=== PATIENT | female | born 1955 | race Caucasian/White ===

== ENCOUNTER 2021-04-11 16:26 | Emergency (ER) | payer OTHER ==
[~2021-04-11] VITALS: Ht 165.1 cm; Wt 81.7 kg
[~2021-04-11 16:26] MED LIST: ACIPHEX 20 MG T20 MG; CYMBALTA60 MG; FLEXERIL PO; PROGESTERONE
[2021-04-11] MEDS ORDERED: NORVASC 2.5 MG2.5 M1 PO (16:55)
[2021-04-11] MEDS ORDERED: LEVO-T25 MCG PO (16:56)
[2021-04-11] MEDS ORDERED: OMEPRAZOLE 20 M20 M1 PO (16:56)
[2021-04-11] MEDS ORDERED: LEXAPRO 10 MG T10 M1 PO (16:57)
[2021-04-11] MEDS ORDERED: XANAX2 MG PO (16:57)
[2021-04-11 17:23] LABS: INFLUENZA A ANTIGEN Negative (Negative); INFLUENZA B ANTIGEN Negative (Negative)
[2021-04-11] MEDS ORDERED: PREDNISONE 20 M20 MG PO (17:29)
[2021-04-11] MEDS ORDERED: AUGMENTIN 875-1 EACH PO (17:29)
[2021-04-11 17:35] VITALS: BP 129/79
== END 2021-04-11 17:35 | disposition home or self-care (01) ==
LOC: M.ERS 16:26
PROVIDERS: Nurse Practitioner Family
DX: J32.1 Chronic frontal sinusitis (principal); J32.0 Chronic maxillary sinusitis; I10 Essential (primary) hypertension; K21.9 Gastro-esophageal reflux disease without esophagitis; K31.84 Gastroparesis; Z86.73 Personal history of transient ischemic attack (TIA), and cerebral infarction without residual deficits; Z98.890 Other specified postprocedural states; Z90.710 Acquired absence of both cervix and uterus; Z90.49 Acquired absence of other specified parts of digestive tract; Z88.5 Allergy status to narcotic agent; Z91.040 Latex allergy status; Z88.8 Allergy status to other drugs, medicaments and biological substances